=== PATIENT | male | born 1990 | race Caucasian/White ===

== ENCOUNTER 2017-03-18 22:21 | Inpatient (IN) | payer MEDICAID ==
[2017-03-19 01:17] VITALS: BMI 27.1
[2017-03-19] MEDS ORDERED: MAGNESIUM HYDROXIDE 2,400 MG/10 ML CUP PO PRN (01:20)
[2017-03-19] MEDS ORDERED: ZIPRASIDONE 20 MG VIAL IM PRN (01:20)
[2017-03-19] MEDS ORDERED: ACETAMINOPHEN TAB 325 MG TAB PO PRN (01:20)
[2017-03-19] MEDS ORDERED: MAG HYDROX/AL HYDROX/SIMETH 30 ML CUP PO PRN (01:20)
[2017-03-19] MEDS ORDERED: LORazepam 1 MG TAB PO PRN (01:20)
[2017-03-19 08:53] LABS: Anion Gap 11 mmol/L; Blood Urea Nitrogen 12 mg/dL (9-20); Calcium 9.9 mg/dL (8.4-10.2); Carbon Dioxide 28 mmol/L (22-30); Chloride 105 mmol/L (98-107); Glucose 82 mg/dL (74-99); Non-African American GFR(MDRD) >60 (>60 ml/min/1.73 sqM); Potassium 4.3 mmol/L (3.5-5.1); Sodium 144 mmol/L (137-145)
[2017-03-19] MEDS: NICOTINE 14MG/24HR PATCH TRANSDERM SCH (09:43)
--- NOTE | 2017-03-19 12:23 | P.HP ---
Psychiatric H&P - . H&P Date: 03/19/17 History & Physical: Allergies Allergy/AdvReac Type Severity Reaction Status Date / Time Penicillins AdvReac Rash/Hives Verified 03/19/17 08:03 Vital Signs Temp 97.5 F L 03/19/17 00:48 Pulse 87 03/19/17 00:48 Resp 16 03/19/17 00:48 BP 131/77 03/19/17 00:48 Pulse Ox 98 03/19/17 00:48 Intake & Output 03/18/17 03/19/17 03/19/17 18:59 06:59 18:59 Weight 95.9 kg Laboratory Last Values Sodium 144 mmol/L (137-145) 03/19/17 08:01 Potassium 4.3 mmol/L (3.5-5.1) 03/19/17 08:01 Chloride 105 mmol/L (98-107) 03/19/17 08:01 Carbon Dioxide 28 mmol/L (22-30) 03/19/17 08:01 Anion Gap 11 mmol/L 03/19/17 08:01 BUN 12 mg/dL (9-20) 03/19/17 08:01 Creatinine 0.85 mg/dL (0.66-1.25) 03/19/17 08:01 Est GFR (MDRD) Af Amer >60 (>60 ml/min/1.73 sqM) 03/19/17 08:01 Est GFR (MDRD) Non-Af >60 (>60 ml/min/1.73 sqM) 03/19/17 08:01 Glucose 82 mg/dL (74-99) 03/19/17 08:01 Calcium 9.9 mg/dL (8.4-10.2) 03/19/17 08:01 03/19/17 11:40 DATE OF SERVICE: 03/19/2017 IDENTIFYING DATA: This patient is a 26-year-old single male who was admitted to the mental health unit through emergency room, brought to [facility] after police picked him up and petitioned him.. 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 States that there was a January and in in the 1950s who provided a [place] crate on top of his head and was weeping and that this was another episode of the Holy Spirit possessing people. States that he was walking in the middle of the road because the Holy Spirit was directing him he was not going to be harmed. States that the Holy Spirit was giving him peace and everybody he encountered with peace. States that he is 8 nationality is and that he was speaking in those 8 different nationality is. Begin sister speak in words that could be words and other languages. Patient states that he got reports that he was at a beer fast and kneeled down and his girlfriend said are you proposing and he looked her in the eye and said will you me. He then described in detail what happened next at the beer fast and then the following day he used his phone for a marriage certificate and states that 7 witnesses signed it. So he believes that he is . Patient continued nonstop describing multiple different events places with little connection to one another. Topics ranged from [place], the Holy Spirit, history of language, the history of certain words in our language, stating that Indonesian is the worst language of all because it does not have a good enough vocabulary to describe love. plans on honeymoon, was barhopping with "brothers of mine, i was not drunk, just a date with my woman, beer tent, body heat +oxygen depleation, Marisa. following day made apaper contract with 7 witnesses sign, brothers and sisters signed, [facility], showed her where he used to fish, described the whole day. PAST PSYCHIATRIC HISTORY: Dr. Gary montilla prescribes Vyvanse for him, patient denies suicidal ideation in the past denies suicide attempts in the past denies inpatient admissions. Patient states he also has OCD but that the ADD compensates for that.. PAST MEDICAL HISTORY: denies. ALLERGIES: PCN. CHEMICAL DEPENDENCY HISTORY: [Patient states that's all in the past and does not want to provide any information such as the amount that he is drinking. He does state in the past he has used alcohol cannabis and cocaine crack fentanyl but reports he's never used any hallucinogenic. Denies using injecting drugs. FAMILY PSYCHIATRIC HISTORY: bipolar half brother, . FAMILY CHEMICAL DEPENDENCY HISTORY:father side has problems with etoh. LEGAL HISTORY: on probation, destroyed 158 tombstones. 1 year in [facility], on probation for 5 years, owes $22, 000. On probation for 18 months SOCIAL HISTORY: Lives with his mother who has MS, could not get history but his bio father is . Has several brothers and sisters, some half sibs. 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 Speech normal volume, increased rate and production. ++Pressured speech Coherent, logical and circumstantial and tangential thought process. No MARIE, + + FOI. No TB/TW/TI Denied auditory and visual hallucinations. Denied paranoid ideation, ++ delusions or IOR. Memory grossly intact Cognition average Mood euthymic, affect expansive, congruent with mood. Denies suicidal ideation, denies homicidal ideation. Insight none; Judgment impaired . STRENGTHS: Has housing, a job. WEAKNESSES: No insight. IMPRESSIONS: 26-year-old single male on a petition, was picked up by the police walking in the middle of main street, believing that he would not be injured due to the Holy Spirit possessing him. He speaks about someone in the past who had a revelation as he did. 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 He does not see this as a problem even though it was risky for him to be walking in the middle of the street. He sees that he is going to be protected by the Holy Spirit no matter what he does. No history of manic episodes in the past according to him however he is an unreliable historian. There is no urine drug screening available yet but he denies using any drugs recently other than alcohol. He is at risk of being injured due to his belief/delusion of the Holy Spirit protecting him. He does not have capacity to sign in voluntarily he will need to dose through the court process and hopefully find a deferral so that we can treat him. Psychosis, unspecified Marie PLAN: Continue inpatient psychiatric admission for protection, continue with petition and certification second CERT will be signed by me. Suicide precautions and every 15 minute checks Urine drug screen, CBC chem 14, TSH. Offer lithium at bedtime. Offer risperidone at bedtime. Alcohol intake is unknown, will have CIWA in place with Ativan to prevent withdrawal.
[2017-03-19 12:52] LABS: Basophils % (A) 1 %; CH 31.3; CHCM 33.4; Eosinophils # (A) 0.1 k/uL (0-0.7); Eosinophils % (A) 2 %; HCT 54.8 % (39.0-53.0); HGB 17.8 gm/dL (13.0-17.5); Luc # (Auto) 0.22; Luc % (Auto) 3; Lymphocytes # (A) 2.8 k/uL (1.0-4.8); Lymphocytes % (A) 38 %; MCH 30.5 pg (25.0-35.0); MCHC 32.4 g/dL (31.0-37.0); MCV 94.2 fL (80.0-100.0); Mean Platelet Volume 7.7; Monocytes # (A) 0.5 k/uL (0-1.0); Monocytes % (A) 7 %; Neutrophils # (A) 3.7 k/uL (1.3-7.7); Neutrophils % (A) 50 %; RBC 5.82 m/uL (4.30-5.90); RDW 12.8 % (11.5-15.5); WBC 7.3 k/uL (3.8-10.6); WBC (Perox) 7.06
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
[2017-03-19] MEDS ORDERED: LITHIUM CARBONATE 150 MG CAP PO SCH (21:00)
[2017-03-20 07:07] VITALS: TEMP 97.9
[2017-03-20] MEDS: NICOTINE 14MG/24HR PATCH TRANSDERM SCH (08:38)
--- NOTE | 2017-03-20 12:29 | P.PN ---
Progress Note - Text INTERVERAL HISTORY: Patient discussed at treatment team meeting, records reviewed, met with patient. Staff are reporting that patient has been able to maintain in groups that he is not intrusive or speaking out of turn, but 1-1 he has pressured speech, he continues to be religiously preoccupied with the Holy Spirit and being a soldier of God. Patient reports that he felt good with the lithium that it has made him happy. States he wants to go on his honeymoon and is hoping to be released. Reviewed the certification/petition process and that he won't be let go and will depend upon what he chooses in that process and treatment. Patient continues to speak about being a soldier of God and that the Holy Spirit protected him from being injured when he was walking in the road goes on to talk about that God tells people to respect authority and that he will respect the police, psychiatrists, staff members. He states however he does not want an payroll benefits clerk who cannot pronounce his name. Reviewed UDS that was done at [facility] and it was negative for all abused drugs. Unknown if he might have used Roberson salts but he denies thoughts. MENTAL STATUS EXAM: Patient alert and oriented 3, good eye contact, fair groomed in street clothing. Speech normal volume, increased rate and production. ++Pressured speech Coherent, logical and circumstantial and tangential thought process. No MARIE, + + FOI. No TB/TW/TI Denied auditory and visual hallucinations. Denied paranoid ideation, ++ delusions or IOR. Memory grossly intact Cognition average Mood euthymic, affect expansive, congruent with mood. Denies suicidal ideation, denies homicidal ideation. Insight none; Judgment impaired IMPRESSIONS: 26-year-old single male on a petition, was picked up by the police walking in the middle of main street, believing that he would not be injured due to the Holy Spirit possessing him. He speaks about someone in the past who had a revelation as he did. 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 He does not see this as a problem even though it was risky for him to be walking in the middle of the street. He sees that he is going to be protected by the Holy Spirit no matter what he does. No history of manic episodes in the past according to him however he is an unreliable historian. There is no urine drug screening available yet but he denies using any drugs recently other than alcohol. He is at risk of being injured due to his belief/delusion of the Holy Spirit protecting him. He does not have capacity to sign in voluntarily he will need to dose through the court process and hopefully find a deferral so that we can treat him. 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 He continues to be religiously preoccupied. Low-dose lithium did not touch the religiosity/delusion, but appears to have helped a little bit with his pressured speech. Thought process is still circumstantial but less tangential. Psychosis, unspecified Marie PLAN: Continue inpatient psychiatric admission for protection, continue with petition and certification second CERT will be signed by me. Suicide precautions and every 15 minute checks Increase lithium 300 mg at bedtime Risperidone 0.5 mg daily, a now dose Explained again the certification process Milieu therapy
[2017-03-20] MEDS: risperiDONE 0.5 MG TAB PO SCH (12:57)
[2017-03-20] MEDS ORDERED: LITHIUM CARBONATE 300 MG CAP PO SCH (21:00)
[2017-03-21 06:21] VITALS: BP 163/75; PULSE 73; RESP 15
--- NOTE | 2017-03-21 08:15 | P.PN ---
Progress Note - Text Progress Note - Text INTERVERAL HISTORY: Patient discussed at treatment team meeting, records reviewed, met with patient. Staff are reporting that patient has been able to maintain in groups that he is not intrusive or speaking out of turn, but 1-1 he has pressured speech, he continues to be religiously preoccupied with the Holy Spirit and being a soldier of God. Patient reports that he felt good with the lithium that it has made him happy. States he wants to go on his honeymoon and is hoping to be released. Reviewed the certification/petition process and that he won't be let go and will depend upon what he chooses in that process and treatment. Patient continues to speak about being a soldier of God and that the Holy Spirit protected him from being injured when he was walking in the road goes on to talk about that God tells people to respect authority and that he will respect the police, psychiatrists, staff members. He states however he does not want an divorce attorney who cannot pronounce his name. Reviewed UDS that was done at [facility] and it was negative for all abused drugs. Unknown if he might have used Roberson salts but he denies thoughts. MENTAL STATUS EXAM: Patient alert and oriented 3, good eye contact, fair groomed in street clothing. Speech normal volume, increased rate and production. ++Pressured speech Coherent, logical and circumstantial and tangential thought process. No MARIE, + + FOI. No TB/TW/TI Denied auditory and visual hallucinations. Denied paranoid ideation, ++ delusions or IOR. Memory grossly intact Cognition average Mood euthymic, affect expansive, congruent with mood. Denies suicidal ideation, denies homicidal ideation. Insight none; Judgment impaired IMPRESSIONS: 26-year-old single male on a petition, was picked up by the police walking in the middle of main street, believing that he would not be injured due to the Holy Spirit possessing him. He speaks about someone in the past who had a revelation as he did. 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 He does not see this as a problem even though it was risky for him to be walking in the middle of the street. He sees that he is going to be protected by the Holy Spirit no matter what he does. No history of manic episodes in the past according to him however he is an unreliable historian. There is no urine drug screening available yet but he denies using any drugs recently other than alcohol. He is at risk of being injured due to his belief/delusion of the Holy Spirit protecting him. He does not have capacity to sign in voluntarily he will need to dose through the court process and hopefully find a deferral so that we can treat him. 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 He continues to be religiously preoccupied. Low-dose lithium did not touch the religiosity/delusion, but appears to have helped a little bit with his pressured speech. Thought process is still circumstantial but less tangential. Psychosis, unspecified Marie PLAN: Continue inpatient psychiatric admission for protection, continue with petition and certification second CERT will be signed by me. Suicide precautions and every 15 minute checks Increase lithium 300 mg at bedtime Risperidone 0.5 mg daily, a now dose Explained again the certification process Milieu therapy
[2017-03-21] MEDS: NICOTINE 14MG/24HR PATCH TRANSDERM SCH (08:36)
[2017-03-21] MEDS: risperiDONE 0.5 MG TAB PO SCH (08:37)
--- NOTE | 2017-03-21 09:08 | P.DS ---
Providers Date of admission: 03/18/17 23:34 Expected date of discharge: 03/21/17 Attending physician: Kathy Sherman MD Consults: 03/19/17 01:20 Consult Physician Routine Consulting Provider: Josep Pacheco Reason/Comments: H&P with medical follow up, also please adress abnormal TSH level Do you want consulting provider notified?: Yes, Notify in am Primary care physician: Stated None Hospital Course: ADMISSION HISTORY: 26-year-old single male on a petition, was picked up by the police walking in the middle of main street, not responding, believing that he would not be injured due to the Holy Spirit possessing him. He speaks about someone in the past who had a revelation as he did. 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 He does not see this as a problem even though it was risky for him to be walking in the middle of the street. He sees that he is going to be protected by the Holy Spirit no matter what he does. Due to his inability to see the dangerousness of what he was doing he was not allowed to sign in voluntarily due to lack of capacity. Began the deferral process. HOSPITAL COURSE: Patient was transferred from another hospital we received his UDS a day after he was admitted here, it was negative for all drugs of abuse. Patient presented in a manic state, with pressured speech pressured speech, tangential thought process, with FOI. He reported being taken over by the Holy Spirit, and that he felt peace with no fear and that he could do what ever the spirit asked him to do which included walking in the middle of the street. He was assessed by CIWA scale, no evidence of withdrawal. Started on low-dose lithium, and initially thought about using a antipsychotic but had hoped that just with lithium the psychosis would resolve. The following day patient was still somewhat intrusive, pressured speech when one to one, but able to control self in groups. He continued to have a circumstantial over detailed thought process with less FOI but still with the hyper episcopalian theme. Leaving he is possessed by the Holy Spirit and that he is a soldier of God. He had reported that several days prior to that on an impulse he got . We were unable to speak with his until yesterday, who reports this is how he always this. He is at risk of being injured due to his belief/delusion of the Holy Spirit protecting him. He does not have capacity to sign in voluntarily he will need to dose through the court process and hopefully find a deferral so that we can treat him. On his last day his pressured speech was decreased, still with a circumstantial at times tangential thought process, but no flight of ideas. On last day SW was able to speak to mother who stated she has noticed some improvement in his speech/thoughts but stated he is at his baseline, agreed he could come home. MENTAL STATUS EXAM: Patient alert and oriented 3, good eye contact, fair groomed in street clothing. Speech normal volume, increased rate and production. No pressured speech but slight push. Coherent, logical and circumstantial and tangential thought process. No MARIE, no FOI. No TB/TW/TI Denied auditory and visual hallucinations. Denied paranoid ideation, ++ delusions or IOR. Memory grossly intact Cognition average Mood euthymic, affect expansive, congruent with mood. Denies suicidal ideation, denies homicidal ideation. Insight none; Judgment impaired ADMISSION DIAGNOSES: Psychosis, unspecified Marie DISCHARGE DIAGNOSES: Psychosis, unspecified Marie PLAN: Patient signed deferral. He is not at risk of self-harm or harm to others. Discharge today. Medications continue to be risperidone 0.5 mg daily at bedtime [place] 600 mg daily at bedtime. Social work will arrange family meeting/phone call. Outpatient follow-up care will also be arranged prior to discharge. Pertinent Studies: none Procedures: none Plan - Discharge Summary New Discharge Prescriptions: [place] Carbonate 600 mg PO HS #30 cap risperiDONE [RisperDAL] 0.5 mg PO DAILY #15 tab Discontinued Lisdexamfetamine Dimesylate [Vyvanse] 50 mg PO QAM Discharge Medication List [place] Carbonate 600 mg PO HS #30 cap 03/21/17 [Rx] risperiDONE [RisperDAL] 0.5 mg PO DAILY #15 tab 03/21/17 [Rx]
[2017-03-21] MEDS ORDERED: LITHIUM CARBONATE 300 MG CAP PO SCH (21:00)
== END 2017-03-21 12:49 | disposition home or self-care (01) | DRG 885 ==
LOC: 3MHU 23:34
PROVIDERS: ADMIT Psychiatry & Neurology Addiction Medicine; ATTEND Psychiatry & Neurology Addiction Medicine
DX: F29 Unspecified psychosis not due to a substance or known physiological condition (principal); F22 Delusional disorders; F17.200 Nicotine dependence, unspecified, uncomplicated; Z82.49 Family history of ischemic heart disease and other diseases of the circulatory system; Z88.0 Allergy status to penicillin; F42.9 Obsessive-compulsive disorder, unspecified
CPT/HCPCS: 80048; 84443; 85025